=== PATIENT | female | born 1955 | race Caucasian/White ===

== ENCOUNTER → 2020-01-28 | Outpatient (CLI) | payer BC ==
[2014-04-24 09:37] VITALS: BP 142/86
[~2020-01-28] MED LIST: METAMUCIL425 GM PO; PHEN37.5 PO
--- NOTE | 2020-01-29 15:59 | RAD ---
DATE: 01/28/2020 10:22 AM EXAM: MAMMO SHAHAB SCREENING BILATERAL HISTORY: Screening COMPARISON: 11/20/2014 Bilateral CC and MLO views of the breasts were performed. Bilateral breast tomosynthesis was performed in CC and MLO projections. This study was interpreted with the benefit of Computerized Aided Detection (CAD). FINDINGS: Breast Density: SCATTERED The breast parenchyma shows scattered fibroglandular densities. Breast parenchyma level B No suspicious masses, microcalcifications or architectural distortion is present to suggest malignancy in either breast. The visualized axillae are unremarkable. IMPRESSION: No mammographic evidence of malignancy. BI-RADS CATEGORY: 1 NEGATIVE RECOMMENDED FOLLOW-UP: 12M 12 MONTH FOLLOW-UP Annual screening mammography is recommended, unless clinically indicated sooner based on symptoms or change in physical exam. PQRS compliance statement: Patient information was entered into a reminder system with a target due date for the next mammogram. Mammography is a sensitive method for finding small breast cancers, but it does not detect them all and is not a substitute for careful clinical examination. A negative mammogram does not negate a clinically suspicious finding and should not result in delay in biopsying a clinically suspicious abnormality. "Our facility is accredited by the [employer] Mammography [employer]."
== END | disposition home or self-care (01) ==
LOC: MAMMO 10:15
PROVIDERS: ATTEND Physician Assistant Medical
DX: Z12.31 Encounter for screening mammogram for malignant neoplasm of breast (principal)
CPT/HCPCS: 77063; 77067

== ENCOUNTER → 2021-03-08 | Outpatient (CLI) | payer BC ==
[2014-04-24 09:37] VITALS: BP 142/86
[~2021-03-08] MED LIST changes: -PHEN37.5 PO; +PHEN37.59 PO
--- NOTE | 2021-03-08 14:40 | RAD ---
MG BILAT SCREEN+SHAHAB 03/08/2021 1:49 PM INDICATION: Asymptomatic screening mammogram. COMPARISON: 01/28/2020 TECHNIQUE: 3D tomosynthesis was performed in CC and MLO projections. 2D views were obtained from the 3D data. CAD was utilized as needed. FINDINGS: Breast density: Category C: The breats are heterogeneously dense, which may obscure small masses. Right breast: There is a focal asymmetry in the upper right breast at posterior depth which is seen a long the posterior nipple line on the cc view, approximately 4.4 cm from the nipple. There is an flaquita tional asymmetry identified in the inferior right breast at central depth approximately 1.8 cm from t he nipple. Further evaluation with spot compression CC view normal views of the right breast recommen ded as well as possible ultrasound. Left breast: There is a focal asymmetry in the slightly lateral left breast at anterior the central d epth, approximately 2.4 cm from the nipple. Further evaluation with spot compression CC and MLO views as well as possible ultrasound recommended. IMPRESSION: Incomplete bilateral mammogram. Additional imaging is recommended as detailed above. BI-RADS category: 0; Incomplete Recommendations: Recommend additional imaging for which the patient will need to be called back. Electronically signed by: Yanni Grove MD (03/08/2021 2:37 PM) [id number]
== END ==
LOC: MAMMO 13:01
PROVIDERS: ATTEND Physician Assistant Medical
DX: Z12.31 Encounter for screening mammogram for malignant neoplasm of breast (principal)
CPT/HCPCS: 77063; 77067

== ENCOUNTER → 2021-03-25 | Outpatient (CLI) | payer BC ==
[2014-04-24 09:37] VITALS: BP 142/86
--- NOTE | 2021-03-25 14:52 | RAD ---
EXAM: Bilateral digital diagnostic mammogram; bilateral breast sonogram. HISTORY: 65-year-old female presents for evaluation of nodularity within both breasts demonstrated on a screening mammogram dated 03/08/2021. TECHNIQUE: Spot compression views of both breasts are obtained. Sonographic imaging of both breasts t argeted to sites of mammographic nodularity was also performed. COMPARISON: 03/08/2021, 01/28/2020, 06/21/2015, 11/25/2014 BREAST PARENCHYMAL DENSITY: Level C - Heterogeneously dense. FINDINGS: There are persistent areas of nodularity within the right breast at the 12:00 and 6:00 posi tions at mid depth and within the 9:00 of the left breast at mid and posterior depth. No architectura l distortion or suspicious calcification is seen. Sonographic imaging of the right breast demonstrates a 4.4 mm hypoechoic lesion with internal echoes at the 12:00 position 4 cm from the nipple. There is a similar-appearing lesion measuring 3.4 mm at t he 6:30 position 4 cm from the nipple. These likely account for areas of mammographic nodularity. The se lesions are not associated with internal blood flow or posterior shadowing. The sonographic appear ance favors a benign fibrocystic or fibroadenomatoid in etiology. Sonographic imaging of the left breast demonstrates a 4.9 mm hypoechoic lesion with internal echoes a t the 9:00 position 3 cm from the nipple and slightly larger similar-appearing hypoechoic lesion with internal echoes measuring 6.6 mm at the 9:30 position 3 cm from the nipple. These account for areas of mammographic nodularity. These lesions are not associated with internal blood flow or posterior sh adowing. Sonographic appearance favors a benign fibrocystic or fibroadenomatoid etiology. IMPRESSION: 1. Multiple simple appearing subcentimeter hypoechoic lesions within both breasts accounting for area s of nodularity on the prior screening mammogram. The multiplicity of these lesions and sonographic a ppearance favors a benign fibers cystic or fibroadenomatoid in etiology. Given slightly indistinct le ivana margins, sonographic follow-up is recommended in 6 months to confirm stability and benignity. 2. BI-RADS Category 3: Probably benign finding(s). Short term follow up with a bilateral breast sonog gabriel in 6 months is recommended. if your mammogram demonstrates that you have dense breast tissue, which could hide abnormalities, and if you have other risk factors for breast cancer that have been identified, you might benefit from s upplemental screening tests that may be suggested by your ordering physician. Dense breast tissue, i n and of itself, is a relatively common condition. This information is not provided to cause undue c oncern, but rather to raise your awareness and to promote discussion with your physician regarding th e presence of other risk factors, in addition to dense breast tissue. A report of your mammography re sults will be sent to you and your physician. You should contact your physician if you have any ques tions or concerns regarding this report. Mammography is a sensitive method for finding small breast cancers, but it does not detect them all a nd is not a substitute for careful clinical examination. A negative mammogram does not negate a clin ically suspicious finding and should not result in delay in biopsying a clinically suspicious abnorma lity. PQRS compliance statement - Patient information was entered into a reminder system with a target due date for the next mammogram. "Our facility is accredited by the [employer] Mammography Program." Electronically signed by: Concepción Fernando MD (03/25/2021 2:50 PM) [id number]
== END ==
LOC: MAMMO 13:34
PROVIDERS: ATTEND Physician Assistant Medical
DX: R92.2 Inconclusive mammogram (principal)
CPT/HCPCS: 77066; 76641-50

== ENCOUNTER → 2021-10-19 | Outpatient (CLI) | payer BC ==
[2014-04-24 09:37] VITALS: BP 142/86
--- NOTE | 2021-10-19 17:11 | RAD ---
EXAMINATION: US BREAST BILAT, 10/19/2021 2:02 PM CLINICAL INDICATION: 66-year-old woman presenting for six-month follow-up of bilateral probably suha gn breast masses. COMPARISON: 03/25/2021 TECHNIQUE: Focused grayscale and color Doppler ultrasound of the breasts. The right breast was imaged at 12:00 and 6:00. The left breast was imaged at 9:00 at 9:30. Both axillae were imaged. FINDINGS: Right breast: At 12:00, 4 cm from the nipple, there is an ovoid hypoechoic mass measuring 4 x 3 x 2 m m. This has slightly indistinct margins, unchanged. There is posterior acoustic enhancement. No inter nal vascularity. The mass at 6:30 4 cm the nipple on prior exam is no longer visualized. No abnormal lymph nodes in the right axilla. Left breast: 2 ovoid hypoechoic circumscribed masses at 9:00 and 9 33 cm from the nipple are unchange d. The mass at 9:30, 3 cm from the nipple measures 7 x 6 x 2 mm. The mass at 9:00 3 cm from the nippl e measures 5 x 3 x 2 mm. Both have been described margins, parallel orientation, and no posterior aco ustic shadowing or internal vascularity. No abnormal lymph nodes in the left axilla. IMPRESSION: 1. Unchanged probably benign mass in the right breast at 12:00 4 cm from the nipple and probably suha gn masses in the left breast at 9:00 and 9:30, 3 cm from the nipple. 2. The mass in the right breast at 6:30, 4 cm from the nipple is no longer visualized. 3. Recommend short interval follow-up ultrasound of the bilateral breasts in 6 months, when the patie nt is due for her annual bilateral mammogram. BI-RADS 3-probably benign. Recommendation: Six-month follow-up bilateral mammogram and bilateral breast ultrasound. Electronically signed by: Mattie Harry MD (10/19/2021 5:03 PM) [id number]
== END ==
LOC: US 13:42
PROVIDERS: ATTEND Physician Assistant Medical
DX: Z09 Encounter for follow-up examination after completed treatment for conditions other than malignant neoplasm (principal); N63.13 Unspecified lump in the right breast, lower outer quadrant
CPT/HCPCS: 76641-50